=== PATIENT | male | born 1955 | race Caucasian/White ===

== ENCOUNTER → 2016-09-01 | Outpatient (CLI) | payer OTHER ==
[~2016-09-01] MED LIST: Iopamidol 755 MG/ML 500 ML Multipack Bottle IVPUSH STA
--- NOTE | 2016-09-01 10:39 | CT ---
EXAMINATION: CT soft tissue neck with and without contrast HISTORY: Pain COMPARISON: None TECHNIQUE: Axial CT images obtained through the neck before and following the administration of 75 m L of Isovue-370 right antecubital fossa. Coronal and sagittal reconstructions obtained. FINDINGS: The oral pharynx and nasopharynx appears symmetric. Retropharyngeal soft tissues appear no rmal. The hypopharynx is grossly unremarkable. The larynx and upper trachea are normal. No bulky cer vical lymphadenopathy. Thyroid gland, parotid, and submandibular glands are normal. The mastoid air cells and middle ears are clear. Mild mucosal thickening within the ethmoid air cells. No bony destr uction. Visualized osseous structures appear intact. There is an enhancing suspicious 2 x 1.7 cm nod ule within the left upper lobe posteriorly. Emphysematous changes are also noted within the apices. The aortic arch is mildly prominent measuring up to 4.7 cm with moderate atheromatous plaque. There is a tiny subcutaneous cyst along the left aspect of the face. IMPRESSION: 1. No acute findings demonstrated within the neck. 2. Suspicious enhancing 2 x 1.7 cm nodule within the left upper lobe. 3. Pulmonary emphysema. 4. Mildly prominent aortic arch and 4.7 cm.
== END ==
LOC: MW.DI 09:06
DX: R07.0 Pain in throat (principal); Z87.891 Personal history of nicotine dependence; Z80.9 Family history of malignant neoplasm, unspecified; J43.9 Emphysema, unspecified; R91.8 Other nonspecific abnormal finding of lung field
CPT/HCPCS: 70492; Q9967

== ENCOUNTER 2017-04-30 08:27 | Day surgery (SDC) | payer OTHER ==
[~2017-04-30 08:27] MED LIST changes: -Iopamidol 755 MG/ML 500 ML Multipack Bottle IVPUSH STA; +Lactated Ringers 1,000 ML IV SCH; +Sodium Chloride 0.9% 10 ML Syringe FLUSH PRN; +Sodium Chloride 0.9% 2.5 ML Syringe FLUSH PRN
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
[2017-04-30] MEDS ORDERED: Propofol 200 MG/20 ML SDV ONE ×2 (09:35→10:27)
--- NOTE | 2017-04-30 10:53 | PCM.OPNOTE ---
- General Post-Op/Procedure Note Date of Surgery/Procedure: 04/30/17 Operative Procedure(s): Colonoscopy Findings: Multiple polyps throughout the rectum and distal sigmoid colon. Too many to remove in one setting. Most were 2-3 mm and sessile. The largest of these were removed. Pre Op Diagnosis: History of colon polyps Post-Op Diagnosis: Multiple rectal and colon polyps Anesthesia Technique: MAC Primary Surgeon: Shweta Mixon Condition: Good
[2017-04-30 11:15] VITALS: BP 107/64
--- NOTE | 2017-04-30 20:38 | OR ---
SURGEON: SHWETA MIXON MD DATE OF PROCEDURE: 04/30/2017 PREOPERATIVE DIAGNOSIS: History of colon polyps. POSTOPERATIVE DIAGNOSIS: Numerous polyps within the distal sigmoid and rectum. PROCEDURE PERFORMED: Diagnostic colonoscopy. ENDOSCOPIST: Dr. Shweta Mixon. INSTRUMENT USED: Olympus colonoscope. PREPARATION: Poor. LIMITATIONS: Poor bowel prep. INDICATIONS: The patient is a 61-year-old male with a history of prostate and lung cancer as well as a history of colon polyps, who presents for screening colonoscopy. He had a previous colonoscopy performed 5 years ago, this showed evidence of hyperplastic polyps. The patient denies any changes in his bowel habits and is here for a repeat colonoscopy. We discussed the procedure as well as expected perioperative course. We discussed the risks, including bleeding, infection, or damage to surrounding structures, including perforation. The patient verbalized understanding and wishes to proceed. PROCEDURE IN DETAIL: The patient was brought into the endoscopy suite and placed in left lateral decubitus position. A time-out was completed verifying the patient's name, age, date of , allergies, and procedure to be performed. Monitored anesthesia care was induced and continuous oxygen was provided via nasal cannula throughout the procedure. After adequate sedation was achieved, a digital rectal exam was performed. This exam was within normal limits. A well lubricated colonoscope was then inserted into the rectum and advanced under direct visualization to the level of cecum. Cecum was identified by both visual and anatomic landmarks. The scope was then fully withdrawn while examining the color, texture, anatomy, and integrity of the mucosa from the cecum to the anal canal. The patient was found to have numerous polyps within the distal sigmoid colon and rectum. I removed the largest of these, but due to the numerous amount of polyps i.e. 20 to 30, I was unable to remove all of them at one time without risking a complication. I identified the largest of these polyps and removed them using a cold biopsy forceps. These were then sent to laboratory. I retroflexed the scope within the rectum and noted the patient to have a large dilated hemorrhoidal vessels. The scope was then straightened out and removed from the patient. The cecum to anus time was 32 minutes. The patient was also noted to have diverticulosis in the distal aspect of the colon. The patient tolerated the procedure well and was taken to PACU in stable condition. ENDOSCOPIC DIAGNOSIS: Multiple colon polyps within the rectum and distal sigmoid colon. Diverticulosis in the distal colon. RECOMMENDATION: Follow up in clinic in 2 weeks to review the pathology and discuss the next steps in management of this patient's disease. TED MARTINEZ /[id number] MTDD
== END 2017-04-30 11:19 | disposition home or self-care (01) ==
LOC: MW.SDS 08:27
PROVIDERS: ATTEND Surgery
DX: Z12.11 Encounter for screening for malignant neoplasm of colon (principal); D12.5 Benign neoplasm of sigmoid colon; K62.1 Rectal polyp; K57.30 Diverticulosis of large intestine without perforation or abscess without bleeding; M19.90 Unspecified osteoarthritis, unspecified site; J44.9 Chronic obstructive pulmonary disease, unspecified; F17.210 Nicotine dependence, cigarettes, uncomplicated; I48.91 Unspecified atrial fibrillation; N40.0 Benign prostatic hyperplasia without lower urinary tract symptoms; F41.9 Anxiety disorder, unspecified; F32.9 Major depressive disorder, single episode, unspecified; E66.9 Obesity, unspecified; Z85.46 Personal history of malignant neoplasm of prostate; Z85.118 Personal history of other malignant neoplasm of bronchus and lung; Z87.19 Personal history of other diseases of the digestive system; Z87.442 Personal history of urinary calculi; Z92.3 Personal history of irradiation; Z79.899 Other long term (current) drug therapy; Z90.2 Acquired absence of lung [part of]; Z90.81 Acquired absence of spleen; Z90.49 Acquired absence of other specified parts of digestive tract; Z98.890 Other specified postprocedural states; Z68.30 Body mass index [BMI] 30.0-30.9, adult
CPT/HCPCS: 45380; 88305; J7120; 00810; J2704